=== PATIENT | male | born 1945 | race Caucasian/White ===

== ENCOUNTER 2020-12-09 10:03 | Emergency (ER) | payer MEDICARE, BC ==
[2020-12-09] MEDS ORDERED: ATORVASTATIN CA10 MG PO (10:44)
[2020-12-09] MEDS ORDERED: EUTHYROX100 MCG PO (10:44)
[2020-12-09] MEDS ORDERED: AMLODIPINE BESYL5 MG PO (10:44)
[2020-12-09] MEDS ORDERED: TRESIBA FL100 UNIT/1 SQ (10:44)
[2020-12-09] MEDS ORDERED: LOSARTAN POTAS100 MG PO (10:45)
[2020-12-09] MEDS ORDERED: METOPROLOL SUC100 M1 PO (10:45)
[2020-12-09] MEDS ORDERED: PAROXETINE HYDR10 MG PO (10:45)
[2020-12-09] MEDS ORDERED: TRADJENTA5 MG PO (10:45)
[2020-12-09] MEDS ORDERED: FENOFIBRATE160 MG PO (10:45)
[2020-12-09] MEDS ORDERED: GLUCOTROL 5M5 MG/TAB PO (10:45)
[2020-12-09 10:47] LABS: BASO # 0.02 (0.02-0.10); EOS # 0.06 (0.04-0.40); EOS % 1.2 % (0.0-4.0); HEMATOCRIT 42.3 % (42.0-52.0); HEMOGLOBIN 13.4 g/dL (13.5-18.0); LYMPH# 0.92 (1.50-4.00); MEAN CELL VOLUME 90 fl (78-100); MEAN CORPUSCULAR HEMOGLOBIN 29 pg (27-31); MEAN CORPUSCULAR HGB CONC 32 g/dL (33-37); MEAN PLATELET VOLUME 11.4 fl (7.4-10.4); MONO # 0.38 (0.20-0.80); NEU # 3.81 (1.40-6.50); PLATELET COUNT 202 K/mm3 (130-400); RED BLOOD COUNT 4.68 M/mm3 (4.20-5.60); RED CELL DISTRIBUTION WIDTH 12.9 % (11.5-14.5); WHITE BLOOD COUNT 5.2 K/mm3 (4.8-10.8)
[2020-12-09 11:03] LABS: ALBUMIN 3.9 g/dL (3.4-4.8); POTASSIUM 4.4 mmol/L (3.5-5.1)
[2020-12-09 11:04] LABS: CALCIUM 9.8 mg/dL (8.3-10.5)
[2020-12-09 11:06] LABS: TOTAL PROTEIN 7.2 g/dL (6.2-8.1)
[2020-12-09 11:08] LABS: TOTAL BILIRUBIN 0.7 mg/dL (0.2-1.2)
[2020-12-09 11:18] LABS: TROPONIN-I 0.03 ng/mL (<0.030)
[2020-12-09 11:34] LABS: D-DIMER 0.8 mg/L FEU (0.15-0.50)
[2020-12-09 11:47] LABS: URINE APPEARANCE CLEAR; URINE BILIRUBIN NEGATIVE (NEGATIVE); URINE BLOOD NEGATIVE (NEGATIVE); URINE COLOR YELLOW; URINE KETONE NEGATIVE (NEGATIVE); URINE LEUKOCYTE ESTERASE NEGATIVE (NEGATIVE); URINE NITRATE NEGATIVE (NEGATIVE); URINE PROTEIN(semi-quant) NEGATIVE (NEGATIVE); URINE UROBILINOGEN NORMAL (NORMAL); URINE WBC 0-1 /hpf (0-3)
[2020-12-09 20:07] VITALS: BP 133/72
== END 2020-12-09 20:45 | disposition short-term general hospital (02) ==
LOC: ED 10:03
PROVIDERS: Nurse Practitioner
DX: I21.4 Non-ST elevation (NSTEMI) myocardial infarction (principal); I10 Essential (primary) hypertension; R91.1 Solitary pulmonary nodule; R79.1 Abnormal coagulation profile; R42 Dizziness and giddiness; E11.9 Type 2 diabetes mellitus without complications; E78.5 Hyperlipidemia, unspecified; E07.9 Disorder of thyroid, unspecified; Z79.4 Long term (current) use of insulin; Z79.890 Hormone replacement therapy; Z79.899 Other long term (current) drug therapy; Z87.891 Personal history of nicotine dependence; Z20.822 Contact with and (suspected) exposure to COVID-19
CPT/HCPCS: J2405; J7030; Q9967